=== PATIENT | male | born 1980 ===

== ENCOUNTER 2020-12-21 11:13 | Emergency (ER) | payer OTHER ==
[~2020-12-21] VITALS: Ht 177.8 cm; Wt 77.1 kg
[2020-12-21] MEDS ORDERED: XANAX1 MG PO (11:17)
== END 2020-12-21 19:59 | disposition home or self-care (01) ==
LOC: ER 11:13
DX: S01.02XA Laceration with foreign body of scalp, initial encounter (principal); S40.011A Contusion of right shoulder, initial encounter; W18.39XA Other fall on same level, initial encounter; Y93.89 Activity, other specified; Y92.098 Other place in other non-institutional residence as the place of occurrence of the external cause; Y99.8 Other external cause status; R56.9 Unspecified convulsions